=== PATIENT | male | born 1970 | race Caucasian/White ===

== ENCOUNTER 2019-05-08 19:48 | Emergency (ER) | payer OTHER ==
[2019-05-08] MEDS ORDERED: Ketorolac 60 MG/2 ML SDV IM ONE (19:51)
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
== END 2019-05-08 21:52 | disposition home or self-care (01) ==
LOC: MW.ED 19:48
DX: S16.1XXA Strain of muscle, fascia and tendon at neck level, initial encounter (principal); F41.9 Anxiety disorder, unspecified; F32.9 Major depressive disorder, single episode, unspecified; E66.9 Obesity, unspecified; Z68.41 Body mass index [BMI] 40.0-44.9, adult; Z79.899 Other long term (current) drug therapy; V49.40XA Driver injured in collision with unspecified motor vehicles in traffic accident, initial encounter; Y92.481 Parking lot as the place of occurrence of the external cause
CPT/HCPCS: 71120; 72125; 73030; 96372; 99284; J1885; J2360